=== PATIENT | female | born 1985 | race Two or more races ===

== ENCOUNTER 2017-01-10 20:07 | Emergency (ER) | payer MEDICAID ==
[2017-01-10 20:33] LABS: % EOSINOPHILS 1.4 % (0.0-5.0); % LYMPHOCYTES 23.4 % (20.0-50.0); % MONOCYTES 2.8 % (2.0-10.0); % NEUTROPHILS 71.4 % (40.0-80.0); HEMATOCRIT 42.5 % (35.0-45.0); HEMOGLOBIN 14.5 gm/dL (11.7-15.5); MEAN CELL VOLUME 87.8 fl (81-100); MEAN CORPUSCULAR HEMOGLOBIN 29.9 pg (27.0-31.0); MEAN CORPUSCULAR HGB CONC 34.1 pg (28.0-36.0); MEAN PLATELET VOLUME 7.9 fl; NEUTROPHILE ABSOLUTE 4.9 Th/cmm (1.8-8.0); PLATELET COUNT 260 Th/cmm (150-400); RED BLOOD COUNT 4.84 Mil/cmm (3.80-5.10); WHITE BLOOD COUNT 6.9 Th/cmm (4.8-10.8)
[2017-01-10 20:49] LABS: INR 0.92 (0.5-1.4); PROTHROMBIN TIME (TEST) 9.6 SECONDS (9.5-11.5)
[2017-01-10 20:54] LABS: ALB/GLOB RATIO 1.5 (1.0-1.8); ALKALINE PHOSPHATASE 82 U/L (34-104); ANION GAP 10.2 (7.0-16.0); BILIRUBIN,TOTAL 0.3 mg/dL (0.3-1.0); BUN - UREA NITROGEN 10 mg/dL (7-25); BUN/CREATININE RATIO 14.3; CALCIUM SERUM 9.5 mg/dL (8.6-10.3); CARBON DIOXIDE 23.3 mEq/L (21.0-31.0); CHLORIDE 105 mEq/L (98-107); CREATININE - SERUM 0.7 mg/dL (0.6-1.2); GLUCOSE 248 mg/dL (70-105); POTASSIUM SERUM 3.5 mEq/L (3.5-5.1); SGOT 55 U/L (13-39); SGPT/ALT 64 U/L (7-52); SODIUM SERUM 135 mEq/L (136-145)
[2017-01-10 20:55] LABS: CHOLESTEROL 211 mg/dL (<200); TRIGLYCERIDES 233 mg/dL (<150)
[2017-01-10] MEDS ORDERED: Phenytoin 700 MG in Sodium Chloride 0.9% 100 ML IV ONE (21:11)
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
[2017-01-10] MEDS ORDERED: Phenytoin 50 mg/mL 5 mL Vial IV ONE (21:55)
[2017-01-10 22:15] LABS: URINE BILIRUBIN NEGATIVE (NEGATIVE); URINE BLOOD NEGATIVE (NEGATIVE); URINE GLUCOSE (UA) 500 mg/dL (NEGATIVE); URINE KETONE NEGATIVE (NEGATIVE); URINE PROTEIN TRACE mg/dL (NEGATIVE); URINE UROBILINOGEN 0.2 E.U./dL (0.2 - 1.0)
[2017-01-10 22:25] LABS: AMPHETAMINE URINE POSITIVE (NEGATIVE); BARBITURATES URINE NEGATIVE (NEGATIVE)
[2017-01-10 22:26] LABS: METHADONE URINE NEGATIVE (NEGATIVE)
[2017-01-10 23:42] LABS: URINE COLOR YELLOW
[2017-01-10 23:44] LABS: URINE BACTERIA NONE SEEN /hpf (NONE SEEN); URINE EPITHELIAL CELLS NONE SEEN /lpf (FEW); URINE RBC NONE SEEN /hpf (0-5); URINE WBC NONE SEEN /hpf (0-5)
== END 2017-01-10 23:15 | disposition left against medical advice (07) ==
LOC: ER 20:07
DX: G40.909 Epilepsy, unspecified, not intractable, without status epilepticus (principal); E11.9 Type 2 diabetes mellitus without complications; F10.10 Alcohol abuse, uncomplicated
CPT/HCPCS: 99284; 96365; 84484; 36415; 80307; 84443; 86592; 85025; 85610; 81001; 80320; 83036; 80053; 80061; J1165; Z7502